=== PATIENT | female | born 1975 | race Asian ===

== ENCOUNTER → 2018-01-15 | Outpatient (CLI) | payer OTHER | END | disposition home or self-care (01) | LOC: CFH 10:02 | PROVIDERS: ATTEND Nurse Practitioner Family | DX: R10.2 Pelvic and perineal pain (principal) | CPT/HCPCS: 76830 ==

== ENCOUNTER 2018-03-05 12:51 | Emergency (ER) | payer OTHER ==
[~2018-03-05] VITALS: Ht 167.6 cm; Wt 92.1 kg
[2018-03-05] MEDS ORDERED: MORPHINE SULFATE 4 MG/ML, 1ML IVPush PRN (14:30)
[2018-03-05] MEDS ORDERED: SODIUM CHLORIDE FLUSH 10ML SYR IVF ONE (14:30)
[2018-03-05 14:37] LABS: ALBUMIN 3.4 g/dL (3.4-5.0); ANION GAP 6 mmol/L (5-15); CHLORIDE 109 mmol/L (98-107)
[2018-03-05 14:46] LABS: ALANINE AMINOTRANSFERASE 42 U/L (12-78); ALKALINE PHOSPHATASE 97 U/L (45-117); BILIRUBIN,TOTAL 0.4 mg/dL (0.2-1.0); CREATININE 0.85 mg/dL (0.55-1.02); TOTAL PROTEIN 7.1 g/dL (6.4-8.2)
[2018-03-05 14:54] LABS: MEAN CORPUSCULAR HEMOGLOBIN 27.1 pg (27.0-34.8); MEAN CORPUSCULAR HGB CONC 33.8 g/dL (32.4-35.8); MEAN CORPUSCULAR VOLUME 80.3 fL (80-100); MEAN PLATELET VOLUME 11.8 fL (7.4-10.4); PLATELET COUNT 214 x10^3/uL (130-400); RED BLOOD COUNT 4.44 x10^6/uL (3.82-5.3); RED CELL DISTRIBUTION WIDTH 14.2 % (9.6-15.2)
[2018-03-05 14:55] LABS: MD YES
[2018-03-05 14:57] LABS: <PLATELET ESTIMATE> ADEQUATE; <RBC MORPHOLOGY> NORMAL; BAND#(MANUAL) 0.43 x10^3/uL; BANDS%(MANUAL) 5 % (0-7); LYMPHS% (MANUAL) 40 % (22-44); MONOS#(MANUAL) 0.26 x10^3/uL (0.3-2.7); MONOS% (MANUAL) 3 % (2-9); SEG#(MANUAL) 4.42 x10^3/uL (1.8-6.8); SEGS% (MANUAL) 52 % (42-75)
[2018-03-05] MEDS ORDERED: HYDROmorphone 2 MG/ML, 1ML ONE (14:57)
[2018-03-05 14:58] LABS: GIANT PLATELETS 1+
[2018-03-05] MEDS ORDERED: HYDROmorphone 2 MG/ML, 1ML IV ONE (15:00)
[2018-03-05] MEDS ORDERED: LEVO75TA5 PO (15:38)
[2018-03-05] MEDS ORDERED: OMNIPAQUE 350 MG/ML, 100ML BOTTLE ONE (16:03)
[2018-03-05 16:22] LABS: CLUE CELLS NONE SEEN (NONE SEEN); WET PREP WBCS NONE SEEN (FEW)
[2018-03-05 16:25] LABS: MICROSCOPIC NOT IND
[2018-03-05 16:29] LABS: CULTURE INDICATED? NO
[2018-03-05 16:44] VITALS: BP 107/57
[2018-03-05] MEDS ORDERED: KETOROLAC 30 MG/1 ML ONE (16:55)
[2018-03-05] MEDS ORDERED: KETOROLAC 30 MG/1 ML IVPush ONE (17:00)
== END 2018-03-05 18:04 | disposition home or self-care (01) ==
LOC: ED 16:17
DX: N89.8 Other specified noninflammatory disorders of vagina (principal); R10.31 Right lower quadrant pain; Z87.42 Personal history of other diseases of the female genital tract
CPT/HCPCS: 36415; 74177; 80053; 81003; 83690; 84703; 85025; 87210; 87491; 87591; 87808; 96374; 96375; 99284; J1170; J1885; Q9967